=== PATIENT | female | born 1970 | race Asian ===

== ENCOUNTER 2021-03-14 11:28 | Emergency (ER) | payer OTHER ==
[2021-03-14] MEDS ORDERED: BACTRIM DS TAB1 EACH PO (11:49)
[2021-03-14] MEDS ORDERED: BACTROBAN OINT22 GM EXT (11:49)
[2021-03-14] MEDS ORDERED: CEPHALEXIN500 MG PO (11:49)
== END 2021-03-14 12:02 | disposition home or self-care (01) ==
LOC: ER1 11:28
DX: L03.114 Cellulitis of left upper limb (principal)
CPT/HCPCS: 99283

== ENCOUNTER → 2021-03-19 | Outpatient (CLI) | payer OTHER ==
[~2021-03-19] MED LIST: BACTRIM DS TAB1 EACH PO; BACTROBAN OINT22 GM EXT; CEPHALEXIN500 MG PO
== END ==
LOC: KOH-I 11:24
DX: D44.0 Neoplasm of uncertain behavior of thyroid gland (principal)
CPT/HCPCS: 76536

== ENCOUNTER → 2021-04-22 | Outpatient (CLI) | payer OTHER | LOC: US 09:01 | DX: D44.0 Neoplasm of uncertain behavior of thyroid gland (principal) ==